=== PATIENT | female | born 1955 | race Caucasian/White ===

== ENCOUNTER 2017-08-01 21:30 | Inpatient (IN) | payer OTHER ==
[~2017-08-01] VITALS: Ht 160 cm; Wt 102.5 kg
[~2017-08-01 21:30] MED LIST: BIOTIN 5000MCG PO; FLINTSTONES M100 MCG PO; MELATONIN10 MG PO; OMEPRAZOLE40 M1 PO; PAPAYA ENZYME1 EACH PO
[2017-08-02 07:02] VITALS: BP 135/81
[2017-08-02 12:51] VITALS: BP 140/89
[2017-08-02 15:48] VITALS: BP 142/86
[2017-08-02 19:50] VITALS: BP 139/78
[2017-08-02 23:25] VITALS: BP 126/76; BP 148/83
[2017-08-03 04:06] VITALS: BP 143/91
[2017-08-03 07:01] LABS: HEMATOCRIT 37.3 % (36.0-46.0); HEMOGLOBIN 12.2 G/DL (11.9-15.5); MCH 29.8 PG (29.0-34.0); MCHC 32.7 G/DL (30.0-36.0); PLATELET COUNT 292 K/uL (156-360); RBC DIS.WIDTH-CV 13.3 % (11.8-14.6); WHITE BLOOD COUNT 10.8 K/uL (4.1-10.2)
[2017-08-03 07:52] VITALS: BP 142/91
[2017-08-03 11:51] VITALS: BP 160/88
[2017-08-03 16:18] VITALS: BP 169/79
== END 2017-08-03 17:15 | disposition home or self-care (01) | DRG 621 ==
LOC: ENRESERV 21:30 → 2SOUTH 08-02 06:29 → 2EAST 08-02 12:50 → 2SOUTH 08-02 15:17 → 2EAST 08-03 17:15
PROVIDERS: Surgery
DX: E66.01 Morbid (severe) obesity due to excess calories (principal); Z68.41 Body mass index [BMI] 40.0-44.9, adult; K44.9 Diaphragmatic hernia without obstruction or gangrene; K43.9 Ventral hernia without obstruction or gangrene; K58.9 Irritable bowel syndrome, unspecified; K21.9 Gastro-esophageal reflux disease without esophagitis; M19.90 Unspecified osteoarthritis, unspecified site; R94.31 Abnormal electrocardiogram [ECG] [EKG]; Z87.891 Personal history of nicotine dependence; Z88.5 Allergy status to narcotic agent; Z82.3 Family history of stroke; Z80.9 Family history of malignant neoplasm, unspecified
CPT/HCPCS: 82948; 85027; C9113; J0131; J0330; J0690; J1100; J1170; J1644; J1650; J2250; J2405; J2710; J2765; J3010; J3480; J7120; J7643; Q0175; S0020